=== PATIENT | male | born 1990 | race Caucasian/White ===

== ENCOUNTER 2016-12-28 19:01 | Emergency (ER) | payer SELFPAY ==
[~2016-12-28] VITALS: Ht 172.7 cm; Wt 68.0 kg
--- NOTE | ~2016-12-28 | CR63 ---
[facility]. [facility] A Service of [facility] & [facility] RADIOLOGY TEXT RESULTS PATIENT: ASTRID CHIU LOCATION: SED : [birth year] UNIT #: [id number] AGE: [address]: David Cervantes MD SEX: M ORDER DR: [id number] [place] [id number] E MR#: [id number] Acc #: [id number] NAME: ASTRID CHIU. : 1990 SEX: M STUDY DATE/TIME: 12/28/2016 19:36 UNIT: SED ROOM: STUDY DESCRIPTION: CR Chest 2 View Attending Physician: David Cervantes M.D. Ordering Physician: David Cervantes M.D. MEDICAL IMAGING REPORT This report is preliminary unless electronic signature is present. EXAM 2-view chest 12/28/2016 HISTORY 26-year-old male with chest pain beginning yesterday. COMPARISON None. FINDINGS Two views of the chest demonstrate clear lungs. No pleural effusion or pneumothorax. Heart size and mediastinum are normal. Pulmonary vasculature normal. IMPRESSION No acute cardiopulmonary findings Dictated by... Joés Manuel Block M.D. THIS IS AN ELECTRONICALLY VERIFIED REPORT José Manuel Block M.D. at 12/29/2016 11:00 PM SEA/moisés TD: 12/29/2016 22:52 JOB #: [id number] MEDICAL IMAGING REPORT Page 1 of 1
--- NOTE | ~2016-12-28 | EKG ---
PATIENT: ASTRID CHIU UNIT #: [id number] Ventricular Rate: 89 BPM Atrial Rate: 89 BPM P-R Interval: 116 ms QRS Duration: 90 ms Q-T Interval: 358 ms QTC Calculation(Bezet): 435 ms P [place]: 63 degrees Calculated R [place]: 84 degrees Calculated T [place]: 60 degrees Diagnosis Line: Normal sinus rhythm Diagnosis Line: Normal ECG Diagnosis Line: No previous ECGs available Diagnosis Line: Confirmed by BISHNU SHARP MD ([id number]) on Diagnosis Line: 01/02/2017 11:08:48 PM INTERPRETING MD: MICHAEL
[2016-12-28 19:57] LABS: BASOPHIL% 0.6 % (0-2.5); EOSINOPHIL# 0.3 X10e3 (0-0.7); EOSINOPHIL% 3.9 % (0.0-7.0); HEMATOCRIT 45.9 % (38.0-50.0); LYMPHOCYTE# 1.8 X10e3 (1.0-3.5); LYMPHOCYTE% 26.7 % (17.0-45.0); MEAN CELL VOLUME 88.8 FL (83-96); MEAN CORPUSCULAR HGB CONC 34.9 g/dL (30-36); MEAN PLATELET VOLUME 8.3 FL (6.5-11.5); MONOCYTE# 0.5 X10e3 (0-1.0); MONOCYTE% 7.3 % (3.0-12.0); NEUTROPHIL# 4.1 X10e3 (1.5-7.1); NEUTROPHIL% 61.5 % (40-75); PLATELET COUNT 162 X10e3 (140-420); RED BLOOD COUNT 5.17 X10e (3.90-5.60); RED CELL DISTRIBUTION WIDTH 12.1 % (11.0-15.5); WHITE BLOOD COUNT 6.6 X10e3 (4.0-10.5)
[2016-12-28 20:00] LABS: DIFF IND NO
[2016-12-28 20:03] LABS: POC - CKMB 1.4 ng/mL (0.0-7.9); POC - MYOGLOBIN 32.3 ng/mL (0.0-169.0); POC - TROPONIN <0.05 ng/mL (<=0.05)
[2016-12-28 20:07] LABS: CREATININE SERUM 0.9 mg/dL (0.6-1.4); GLOM FILT RATE Estimated 117.5 mL/min (>60)
== END 2016-12-28 20:27 | disposition home or self-care (01) ==
LOC: SED 19:01
PROVIDERS: Emergency Medicine
DX: R07.9 Chest pain, unspecified (principal); F41.9 Anxiety disorder, unspecified
CPT/HCPCS: 36415; 71020; 80048; 82553; 83874; 84484; 85025; 99285